=== PATIENT | male | born 1970 | race Two or more races ===

== ENCOUNTER 2024-02-12 00:45 | Inpatient (IN) | payer BC, MEDICAID ==
[~2024-02-12] VITALS: Ht 180.3 cm; Wt 90.0 kg
[2024-02-12 02:47] LABS: Basophils # (auto) 0 10 ^3/uL (0-0.2); Basophils % (auto) 0.5 % (0.0-2.0); Eosinophils # (auto) 0.2 10 ^3/uL (0-0.8); Eosinophils % (auto) 2.7 % (0.0-7.0); Hematocrit 48.6 % (41.0-53.0); Hemoglobin 16.6 g/dL (13.5-17.5); Lymphocytes # (auto) 2.3 10 ^3/uL (0.4-5.4); Lymphocytes % (auto) 29.9 % (10.0-50.0); Mean Corpuscular Hemoglobin 33.4 pg (28.0-32.0); Mean Corpuscular Hgb Conc. 34.2 g/dL (32.0-36.0); Mean Corpuscular Volume 97.7 fL (80.0-100.0); Monocytes # (auto) 0.6 10 ^3/uL (0-1.3); Monocytes % (auto) 7.6 % (0.0-12.0); Neutrophils # (auto) 4.6 10 ^3/uL (1.6-8.6); Neutrophils % (auto) 59.3 % (37.0-80.0); Nucleated Red Blood Cells % 0.1 %; Red Blood Cells 4.98 10^6/uL (4.5-5.90); White Blood Cell 7.8 10^3/uL (4.4-10.8)
[2024-02-12 02:51] LABS: Alanine Aminotransferase 147 U/L (7-40); Albumin 4.9 g/dL (3.2-4.8); Alkaline Phosphatase 97 U/L (46-116); Anion Gap 9 (5-15); Aspartate Aminotransferase 94 U/L (13-40); BUN/Creatinine Ratio 6.3 (10.0-20.0); Blood Urea Nitrogen 6 mg/dL (9-23); Calcium 9.4 mg/dL (8.7-10.4); Carbon Dioxide 25 mmol/L (20-30); Chloride 102 mmol/L (98-107); Glucose 180 mg/dL (74-106); Potassium 3.8 mmol/L (3.5-5.1); Sodium 136 mmol/L (136-145)
[2024-02-12 02:52] LABS: Bilirubin, Total 0.5 mg/dL (0.2-1.0); Total Protein 7.8 g/dL (5.7-8.2)
[2024-02-12 03:01] LABS: INR 1.04 (0.9-1.15); Partial Thromboplastin Time 31.9 SEC (24.5-34.5); Prothrombin Time 10.9 sec (9.3-11.8)
[2024-02-12] MEDS ORDERED: NITROGLYCERIN 0.4 MG SL TAB SL PRN (06:15)
[2024-02-12] MEDS ORDERED: ONDANSETRON HCL 4 MG/2 ML VIAL IV PRN (06:15)
[2024-02-12] MEDS ORDERED: TEMAZEPAM 15 MG CAP PO PRN (06:15)
[2024-02-12] MEDS ORDERED: MORPHINE SULFATE INJ 2 MG/ml SYRG IV PRN (06:15)
[2024-02-12] MEDS ORDERED: ACETAMINOPHEN 325 MG TAB PO PRN (06:15)
[2024-02-12] MEDS: ASPirin 81 mg TAB PO ONE (06:22)
[2024-02-12 06:31] LABS: Triglycerides 213 mg/dL (< 150)
[2024-02-12 06:32] LABS: LDL Cholesterol 177 mg/dL (< 100)
[2024-02-12 06:33] LABS: Cholesterol 257 mg/dL (< 200); HDL Cholesterol 68 mg/dL (40-59)
[2024-02-12 06:46] VITALS: BP 153/98; PULSE 82; RESP 14; TEMP 98.1; O2SAT 93
[2024-02-12] MEDS ORDERED: ASPirin 81 mg TAB PO SCH (10:00)
== END 2024-02-13 07:35 | disposition left against medical advice (07) | DRG 313 ==
LOC: ER 00:45 → TELE 06:14
PROVIDERS: ADMIT Nurse Practitioner; ATTEND Family Medicine
DX: R07.89 Other chest pain (principal); I10 Essential (primary) hypertension
CPT/HCPCS: 36415; 71045; 80053; 80061; 83880; 84484; 85025; 85379; 85610; 85730; 93005; G0378

== ENCOUNTER 2024-08-26 06:57 | Day surgery (SDC) | payer MEDICAID ==
[~2024-08-26] VITALS: Ht 180.3 cm; Wt 77.6 kg
[2024-08-26] VITALS (7 sets, daily range): BP systolic 109–134; BP diastolic 60–72; PULSE 55–68; RESP 12–17; O2SAT 95–99
[~2024-08-26 06:57] MED LIST: ASPI-543 PO; IBUP-1456 PO; NITR0.4S29 SL
[2024-08-26] MEDS ORDERED: IODIXANOL 320MG/ML 100ML BTL IV ONE (07:30)
[2024-08-26] MEDS ORDERED: ANGIOMAX 250 MG VIAL IV ONE (08:01)
[2024-08-26] MEDS ORDERED: VERAPAMIL 2.5MG/ML INJ 2ML VIAL IV ONE (08:01)
[2024-08-26] MEDS ORDERED: HEPARIN SODIUM (PORCINE) 5000 UNITS/ML 1ML VIAL ONE (08:01)
[2024-08-26] MEDS ORDERED: fentaNYL CITRATE 100 MCG/2 ML VL ONE (08:02)
[2024-08-26] MEDS ORDERED: LIDOCAINE 2%HCL (LOCAL ANESTH.) INJ 20ML MDV ONE (08:02)
[2024-08-26] MEDS ORDERED: SODIUM CHL 0.9% 0 ML ONE (08:02)
[2024-08-26] MEDS ORDERED: MIDAZOLAM HCL 2MG/2ML 2ml VIAL (1mg/ml) ONE (08:02)
== END 2024-08-26 10:59 | disposition home or self-care (01) ==
LOC: CATH 06:57
PROVIDERS: ATTEND Internal Medicine
DX: I25.9 Chronic ischemic heart disease, unspecified (principal); F17.210 Nicotine dependence, cigarettes, uncomplicated; F41.9 Anxiety disorder, unspecified; F43.9 Reaction to severe stress, unspecified; Z91.09 Other allergy status, other than to drugs and biological substances; Z98.890 Other specified postprocedural states; Z79.82 Long term (current) use of aspirin
CPT/HCPCS: 93458; C1894; J1644; J2250; J3010; J7030; Q9967; 99152

== ENCOUNTER 2025-05-16 23:05 | Emergency (ER) | payer MEDICAID, OTHER ==
[~2025-05-16] VITALS: Ht 167.6 cm; Wt 77.2 kg
--- NOTE | 2025-05-16 23:35 | ED.PDOC ---
History of Present Illness HPI Comments 54-year-old male admits to drinking alcohol tonight and had some tightness in his chest earlier today. Unprovoked. No known modifying factors. Chief Complaint: ETOH Time Seen by MD: 23:14 Primary Care Provider: OZZIE Allergies: Coded Allergies: Tramadol (Verified Allergy, Unknown, seizures, 08/21/24) Home Meds Reported Medications Ibuprofen (Ibuprofen) 800 Mg Tab, 800 MG PO PRN, MG 08/21/24 Nitroglycerin (NTROSTAT SUBLINGUAL) 0.4 Mg Sl, 0.4 MG SL PRN for chest pain, TAB *MAY REPEAT EVERY 5 MINUTES X 3 TOTAL IF NO RELIEF, INITIATE ANALGESIC THERAPY. NOTIFY PHYSICIAN *Do not crush. 08/21/24 Aspirin (Aspir-Low) 81 Mg Tab, 81 MG PO DAILY for chest pain, MG 08/21/24 Information Source: Patient, Emergency Med Personnel Mode of Arrival: EMS Severity: Moderate Timing: Hours Duration: Since onset Past Medical History PAST MEDICAL HISTORY: Denies Surgical History: Denies all surgeries Family History Family History: Reviewed,noncontributory to illness Social History Smoker: Non-Smoker Alcohol: Denies ETOH Use Drugs: Denies Drug Use Lives In: Home Constitutional: reports: fatigue, malaise Cardiovascular: reports: chest pain All Other Systems: Reviewed and Negative Physical Exam General Appearance: Mild Distress HEENT: Normal ENT Inspection, Pharynx Normal, TMs Normal Neck: Full Range of Motion, Non-Tender, Normal, Normal Inspection Respiratory: Chest Non-Tender, Lungs Clear, No Accessory Muscle Use, No Respiratory Distress, Normal Breath Sounds Cardiovascular: No Edema, No JVD, No Murmur, No Gallop, Normal Peripheral Pulses, Regular Rate/Rhythm Breast Exam: Deferred Gastrointestinal: No Organomegaly, Non Tender, No Pulsatile Mass, Normal Bowel Sounds, Soft Genitalia: Deferred Pelvic: Deferred Rectal: Deferred Extremities: No calf tenderness, Normal capillary refill, Normal inspection, Normal range of motion, Non-tender, No pedal edema Musculoskeletal : Apperance: Normal Neurologic: Alert, government affairs director II-XII nml as Tested, No Motor Deficits, Normal Affect, Normal Mood, No Sensory Deficits Cerebellar Function: Normal Reflexes: Normal Skin: Dry, Normal Color, Warm Lymphatic: No Adenopathy Was a procedure done? Was a procedure done?: No Differential Dx Considerations may include: Differential diagnosis includes but not limited to: angina, myocardial infarction, pulmonary embolus, pleurisy, musculoskeletal etiology and others X-Ray, Labs, Meds, VS Vital Signs Date Time Temp Pulse Resp B/P (MAP) Pulse Ox O2 Delivery O2 Flow Rate FiO2 05/16/25 23:25 98.9 115 16 148/90 (109) 97 98.9 05/16/25 23:10 110 Lab Test 05/17/25 00:25 05/16/25 23:16 Range/Units Troponin I High Sensitivity 7 5 </=54 ng/L White Blood Count 8.5 4.4-10.8 10^3/uL Red Blood Count 4.48 L 4.5-5.90 10^6/uL Hemoglobin 15.0 13.5-17.5 g/dL Hematocrit 43.0 41.0-53.0 % Mean Corpuscular Volume 95.9 80.0-100.0 fL Mean Corpuscular Hemoglobin 33.4 H 28.0-32.0 pg Mean Corpuscular Hemoglobin Concent 34.8 32.0-36.0 g/dL Red Cell Distribution Width 12.8 11.8-14.3 % Platelet Count 107 L 140-450 10^3/uL Mean Platelet Volume 9.7 6.9-10.8 fL Neutrophils (%) (Auto) 64.1 37.0-80.0 % Lymphocytes (%) (Auto) 25.3 10.0-50.0 % Monocytes (%) (Auto) 9.5 0.0-12.0 % Eosinophils (%) (Auto) 0.3 0.0-7.0 % Basophils (%) (Auto) 0.8 0.0-2.0 % Neutrophils # (Auto) 5.5 1.6-8.6 10 ^3/uL Lymphocytes # (Auto) 2.2 0.4-5.4 10 ^3/uL Monocytes # (Auto) 0.8 0-1.3 10 ^3/uL Eosinophils # (Auto) 0 0-0.8 10 ^3/uL Basophils # (Auto) 0.1 0-0.2 10 ^3/uL Nucleated Red Blood Cells 0.1 % Sodium Level 133 L 136-145 mmol/L Potassium Level 3.4 L 3.5-5.1 mmol/L Chloride Level 97 L 98-107 mmol/L Carbon Dioxide Level 20 20-31 mmol/L Anion Gap 16 H 5-15 Blood Urea Nitrogen 9 9-23 mg/dL Creatinine 1.17 0.700-1.30 mg/dL Glomerular Filtration Rate Calc 74 >90 mL/min BUN/Creatinine Ratio 7.7 L 10.0-20.0 Serum Glucose 356 H 74-106 mg/dL Calcium Level 10.1 8.7-10.4 mg/dL Total Bilirubin 1.8 H 0.2-1.0 mg/dL Aspartate Amino Transferase (AST) 60 H <34 U/L Alanine Aminotransferase (ALT) 48 H 7-40 U/L Alkaline Phosphatase 98 46-116 U/L Total Protein 7.8 5.7-8.2 g/dL Albumin 4.6 3.2-4.8 g/dL Salicylates Level < 3.0 -30 mg/dL Acetaminophen Level < 2.0 L 10.0-20.0 UG/ML Plasma/Serum Blood Alcohol 281.0 H <10 mg/dL Current Medications Medications (Trade) Dose Ordered Sig/Tiffany Route Start Time Stop Time Status Last Admin Sodium Chloride 1,000 ml @ 1,000 mls/hr Q1H ONCE IVB 05/16/25 23:30 05/17/25 00:29 DC 05/16/25 23:53 Time of 1ST Reevaluation: 23:34 Reevaluation 1ST: Unchanged Patient Education/Counseling: Diagnosis, Treatment Family Education/Counseling: No Family Present Departure 1 Departure Time of Disposition: 02:31 Impression: Primary Impression: Alcohol abuse Additional Impression: Atypical chest pain Disposition: 01 HOME / SELF CARE / HOMELESS Condition: Stable Discharged With: Self Critical Care Note Critical Care Time?: No Stability Stability form required: No Heart Score Heart Score: Heart Score Response (Comments) Value History Slightly Suspicious 0 EKG Normal 0 Age 45-64 1 Risk Factors 1 or 2 risk factors 1 Troponin Normal limit 0 Total 2 MAHNAZ ROCK MD May 16, 2025 23:35
[2025-05-16 23:46] LABS: Basophils # (auto) 0.1 10 ^3/uL (0-0.2); Basophils % (auto) 0.8 % (0.0-2.0); Eosinophils # (auto) 0 10 ^3/uL (0-0.8); Eosinophils % (auto) 0.3 % (0.0-7.0); Lymphocytes # (auto) 2.2 10 ^3/uL (0.4-5.4); Lymphocytes % (auto) 25.3 % (10.0-50.0); Mean Corpuscular Hemoglobin 33.4 pg (28.0-32.0); Mean Corpuscular Hgb Conc. 34.8 g/dL (32.0-36.0); Mean Corpuscular Volume 95.9 fL (80.0-100.0); Monocytes # (auto) 0.8 10 ^3/uL (0-1.3); Monocytes % (auto) 9.5 % (0.0-12.0); Neutrophils # (auto) 5.5 10 ^3/uL (1.6-8.6); Neutrophils % (auto) 64.1 % (37.0-80.0); Nucleated Red Blood Cells % 0.1 %; Platelet Count (auto) 107 10^3/uL (140-450); Red Blood Cells 4.48 10^6/uL (4.5-5.90); Red Cell Distribution Width 12.8 % (11.8-14.3); White Blood Cell 8.5 10^3/uL (4.4-10.8)
[2025-05-16] MEDS: SODIUM CHLORIDE 0.9% 1,000 ML IVB ONE (23:53)
[2025-05-16 23:55] LABS: Alkaline Phosphatase 98 U/L (46-116); Anion Gap 16 (5-15); BUN/Creatinine Ratio 7.7 (10.0-20.0); Calcium 10.1 mg/dL (8.7-10.4); Carbon Dioxide 20 mmol/L (20-31); Total Protein 7.8 g/dL (5.7-8.2)
[2025-05-16 23:56] LABS: Albumin 4.6 g/dL (3.2-4.8); Salicylate < 3.0 mg/dL (-30)
[2025-05-16 23:57] LABS: Acetaminophen < 2.0 UG/ML (10.0-20.0)
[2025-05-17] VITALS: RESP 19; O2SAT 96
[2025-05-17 00:10] LABS: Alanine Aminotransferase 48 U/L (7-40); Aspartate Aminotransferase 60 U/L (<34); Bilirubin, Total 1.8 mg/dL (0.2-1.0); Blood Urea Nitrogen 9 mg/dL (9-23); Chloride 97 mmol/L (98-107); Glucose 356 mg/dL (74-106); Potassium 3.4 mmol/L (3.5-5.1); Sodium 133 mmol/L (136-145)
[2025-05-17 01:30] VITALS: TEMP 98.3
[2025-05-17 02:30] VITALS: BP 139/69; PULSE 75; RESP 16; O2SAT 100
--- NOTE | 2025-05-17 05:32 | ECG ---
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
== END 2025-05-17 02:57 | disposition home or self-care (01) ==
LOC: EDBD 23:05 → EDSEX 23:05 → EDUNIT# 23:05 → ER 23:05
DX: F10.10 Alcohol abuse, uncomplicated (principal); R07.89 Other chest pain; Z88.5 Allergy status to narcotic agent; Z79.82 Long term (current) use of aspirin; Z79.899 Other long term (current) drug therapy; Y90.8 Blood alcohol level of 240 mg/100 ml or more
CPT/HCPCS: 36415; 80053; 80320; 80329; 84484; 85025; 93005; 96360; 99284; J7030